=== PATIENT | female | born 1960 | race Caucasian/White ===

== ENCOUNTER 2024-04-07 10:52 | Emergency (ER) | payer MEDICARE, MEDICAID, SELFPAY ==
[2024-04-07 10:59] VITALS: BP 136/67; PULSE 74; RESP 19; TEMP 36.7; O2SAT 97; BMI 30.6
--- NOTE | 2024-04-07 11:18 | PD.EDRME ---
Rapid Medical Screening Exam RME Arrival date/time: 04/07/24 10:52 64-year-old female with past medical history of cholecystectomy appendectomy and daily smoker presents emergency department complaining of right lower quadrant pain that been ongoing since yesterday. Patient reports went to primary care provider and was sent to emergency room for evaluation. Chief Complaint: Abdominal Pain Vital signs: Vital Signs Temperature 98.0 F 04/07/24 10:59 Pulse Rate 74 04/07/24 10:59 Respiratory Rate 19 04/07/24 10:59 Blood Pressure 136/67 H 04/07/24 10:59 Pulse Oximetry (%) 97 04/07/24 10:59 Oxygen Delivery Method Room Air 04/07/24 10:59 Vital signs reviewed by provider: Yes
--- NOTE | 2024-04-07 11:19 | XR_ITS ---
Examination: CT abdomen and pelvis without contrast. Coronal 3-D reconstructions. Sagittal 2-D reconstructions. Date and time of exam:April 07, 2024 1148 hrs. Indications: Onset abdominal pain this week CTDI: vol (mGy): 10.7 DLP: (mGycm): 607 Technique: Axial images of the abdomen have been obtained, 3 mm slice thickness Intravenous contrast material has not been administered. Low dose protocols were performed. One or more of the following dose reduction techniques were used; automated exposure control, adjustment of the mA and/or KV according to patient size, use of iterative reconstruction technique. Findings: Trace pericardial effusion 2 mm pulmonary nodule right lower lobe image 14 No focal liver or splenic lesion Absent gallbladder No pancreatic or adrenal mass No renal or ureteral calculi, no hydronephrosis No bowel obstruction Appendix not visualized, likely absent, no pericecal inflammatory change There are fluid distended small bowel loops in the left anterior abdomen for instance axial image 108 and 128 Colonic diverticulosis, no diverticulitis Atrophic uterus Contracted urinary bladder Pessary Severe osteopenia with advanced disc narrowing L4-L5, L5-S1 Impression: 2 mm pulmonary nodule right lower lobe No renal or ureteral calculi, no hydronephrosis Likely absent appendix Fluid distended small bowel loops in the left anterior abdomen, consider ileus, enteritis such as Crohn's disease No bowel obstruction Colonic diverticulosis, no diverticulitis
[2024-04-07 11:56] LABS: Basophils % (Auto) 0 % (0-2.5); Eosinophils # (Auto) 0.2 Thou/mm3 (0.0-0.5); Eosinophils % (Auto) 2 % (0-10); Hematocrit 42.7 % (36.0-46.0); Hemoglobin 14.3 g/dL (12.0-16.0); Immature Granulocytes % (Auto) 1 % (0-0); Immature Granulocytes Auto 0.05 Thou/mm3 (0.00-0.00); Lymphocytes # (Auto) 3.7 Thou/mm3 (1.0-4.8); Lymphocytes % (Auto) 40 % (10-50); Mean Corpuscular HGB Conc 33.5 g/dl (31.0-37.0); Mean Corpuscular Hemoglobin 31.4 pg (25.0-35.0); Mean Corpuscular Volume 94 fL (80-100); Monocytes # (Auto) 0.4 Thou/mm3 (0.0-0.8); Monocytes % (Auto) 5 % (0-12); Neutrophils # (Auto) 4.8 Thou/mm3 (1.8-7.7); Neutrophils % (Auto) 52 % (37-80); Nucleated Red Blood Cell % 0 /100 WBC (0); Platelet Count 336 Thou/mm3 (140-440); Red Blood Count 4.55 Miln/mm3 (4.00-5.20); White Blood Count 9.2 Thou/mm3 (3.6-11.0)
[2024-04-07 12:19] LABS: Alanine Aminotransferase 17 U/L (10-49); Albumin/Globulin Ratio 1.8 (1.2-2.2); Alkaline Phosphatase 92 U/L (46-116); Anion Gap 3 (7-16); Aspartate Amino Transferase 18 U/L (0-34); BUN/Creatinine Ratio 13 Ratio (12-20); Bilirubin,Total 0.4 mg/dL (0.3-1.2); Blood Urea Nitrogen 10 mg/dL (9-23); Calcium 10.2 mg/dL (8.3-10.6); Calcium (Corrected) 10.2 mg/dL (8.5-10.1); Chloride 106 mMol/L (98-107); Creatinine (Component) 0.8 mg/dL (0.6-1.3); Globulin 2.8 gm/dL (2.3-3.5); Glucose 100 mg/dL (74-106); Lipase 35 U/L (12-53); Osmolality,Calculated 276 (275-295); Potassium 3.7 mMol/L (3.4-5.1); Sodium 139 mMol/L (136-145); Total Protein 7.8 gm/dL (5.7-8.2); eGFR > 60 See Note
[2024-04-07 12:32] LABS: Collection Type, Urine Clean Catch
[2024-04-07 12:42] LABS: Bacteria,Urine 1+; Bilirubin,Urine Negative (Negative); Blood,Urine Negative (Negative); Clarity,Urine Turbid (Clear/Hazy); Color,Urine Yellow (Lt Yel-Yel); Culture Indicated,Urine Contaminated; Glucose, Urine Negative (Negative); Ketones,Urine Negative (Negative); Leukocyte Esterase,Urine Positive (Negative); Nitrite,Urine Negative (Negative); Protein,Urine 1+ (Neg - Trace); RBC,Urine 5 /hpf (0-3); Specific Gravity,Urine 1.021 (1.001-1.035); Squamous Epithelial Cell,Urine 24 /hpf (0-5); Transitional Epi Cells,Urine 1 /hpf (0-5); Urobilinogen,Urine Negative mg/dL (0.0-1.0); WBC,Urine 34 /hpf (0-5)
--- NOTE | 2024-04-07 13:23 | PD.EDABDPN ---
ED Abdominal Pain RME/HPI General Chief Complaint: Abdominal Pain Stated complaint: RIGHT LOWER STOMACH PAIN Time seen by provider: 04/07/24 13:18 Arrival date/time: 04/07/24 10:52 64-year-old female with past medical history of cholecystectomy appendectomy and daily smoker presents emergency department complaining of right lower quadrant pain that been ongoing since yesterday. Patient reports went to primary care provider and was sent to emergency room for evaluation. Source: patient Mode of arrival: ambulatory Limitations: no limitations RME / HPI RME / HPI narrative: 04/07/24 10:52 64-year-old female with past medical history of cholecystectomy appendectomy and daily smoker presents emergency department complaining of right lower quadrant pain that been ongoing since yesterday. Patient reports went to primary care provider and was sent to emergency room for evaluation. Related Data Home Medications ?Medication ?Instructions ?Recorded ?Confirmed levothyroxine 150 mcg tablet 150 mcg PO QDAY #0 tabs 01/23/16 07/26/19 lovastatin 40 mg tablet 80 mg PO HS #0 tabs 01/23/16 07/26/19 bupropion HCl 75 mg tablet 75 mg PO QDAY 03/11/19 07/26/19 Previous Rx's ?Medication ?Instructions ?Recorded albuterol sulfate 90 mcg/actuation 2 puff inhalation Q6H PRN sob #6.7 04/06/19 aerosol inhaler (Ventolin HFA) grams acetaminophen 500 mg capsule 1,000 mg (2 x 500 mg) PO Q6H PRN 01/08/22 pain #14 caps ibuprofen 800 mg tablet 800 mg PO Q6H PRN pain #14 tabs 01/08/22 Allergies Allergy/AdvReac Type Severity Reaction Status Date / Time codeine Allergy Intermediate VOMITING Verified 04/07/24 10:54 Review of Systems Review of Systems Systems Reviewed: All systems reviewed, normal except as documented Constitutional Constitutional: Reports system reviewed and no additional complaints, except as documented, Denies body ache(s), Denies chills and Denies fever(s) Eyes Eyes: Reports system reviewed and no additional complaints, except as documented and Denies change in vision ENT Ears, Nose, Mouth, and Throat: Reports system reviewed and no additional complaints, except as documented, Denies disequilibrium, Denies dizziness, Denies sore throat and Denies vertigo Cardiovascular Cardiovascular: Reports system reviewed and no additional complaints, except as documented, Denies chest pain and Denies dyspnea Respiratory Respiratory: Reports system reviewed and no additional complaints, except as documented, Denies chest congestion, Denies cough and Denies dyspnea Gastrointestinal Gastrointestinal: Reports system reviewed and no additional complaints, except as documented, Reports abdominal pain, Denies nausea and Denies vomiting Musculoskeletal Musculoskeletal: Reports system reviewed and no additional complaints, except as documented, Denies abnormal gait and Denies arthralgias Integumentary/Breasts Skin/Breast: Reports system reviewed and no additional complaints, except as documented, Denies erythema, Denies rash and Denies wounds Neurologic Neurologic: Reports system reviewed and no additional complaints, except as documented, Denies abnormal gait, Denies disequilibrium, Denies dizziness and Denies vertigo Past Medical History Past Medical History CARDIAC: Positive Hypercholesterolemia; Negative Congestive Heart Failure RESPIRATORY: Negative Chronic Obstructive Pulmonary Disease (COPD) GENITOURINARY: Negative Renal Disease MUSCULOSKELETAL: Positive Carpal Tunnel Syndrome (BILAT) ENDOCRINE: Positive Hypothyroidism; Negative Diabetes Mellitus Type 1 or Diabetes Mellitus Type 2 Surgical History SURGICAL: Positive Tubal Ligation and Section (X1) Social History SMOKING STATUS: Current every day smoker SUBSTANCE USE: does not use ED Exam General Limitations: Present no limitations General appearance: Present alert and in no apparent distress Head Head exam: Present atraumatic Eye Eye exam: Present normal appearance, PERRL and EOMI ENT ENT exam: Present normal exam, normal oropharynx and mucous membranes moist Neck Neck exam: Present normal inspection, full ROM and trachea midline Chest Chest inspection: Present normal inspection and symmetric chest wall rise Respiratory Respiratory exam: Present normal lung sounds bilaterally Cardiovascular Cardiovascular exam: Present regular rate, normal rhythm and normal heart sounds Abdominal Exam Abdominal exam: Present soft and normal bowel sounds; Absent tenderness or rebound Extremities Exam Extremities exam: Present normal inspection and full ROM Back Exam Back exam: Present normal inspection and full ROM Neurological Exam Neurological exam: Present alert, oriented X3 and CN II-XII intact Psychiatric Psychiatric exam: Present normal affect and normal mood Skin Skin exam: Present warm, dry, intact and normal color Course Quality Measures none Orders Category Date Time Status CT abdomen pelvis wo con Stat Exams 04/07/24 11:19 Completed CBC Stat Lab 04/07/24 11:37 Completed CMP [Comprehensive Metabolic Panel] Stat Lab 04/07/24 11:37 Completed Lipase Stat Lab 11/09/24 11:37 Completed Urinalysis, C/S if Indicated Stat Lab 04/07/24 12:27 Completed Vital Signs Vital signs: Vital Signs Temperature 98.0 F 04/07/24 10:59 Pulse Rate 74 04/07/24 10:59 Respiratory Rate 19 04/07/24 10:59 Blood Pressure 136/67 H 04/07/24 10:59 Pulse Oximetry (%) 97 04/07/24 10:59 Oxygen Delivery Method Room Air 04/07/24 10:59 97% room air within normal limits Abdominal Pain MDM MDM Narrative MDM Narrative:: 64-year-old female with past medical history of cholecystectomy appendectomy and daily smoker presents emergency department complaining of right lower quadrant pain that been ongoing since yesterday. Patient reports went to primary care provider and was sent to emergency room for evaluation. CBC was unremarkable for any leukocytosis. CMP was unremarkable no elevation of liver enzymes. Urinalysis was contaminated. CT finding: Impression: 2 mm pulmonary nodule right lower lobe No renal or ureteral calculi, no hydronephrosis Likely absent appendix Fluid distended small bowel loops in the left anterior abdomen, consider ileus, enteritis such as Crohn's disease No bowel obstruction Colonic diverticulosis, no diverticulitis Patient's abdomen is soft and nontender. Patient denies any chills, fever, nausea vomiting, diarrhea, or any other associated symptom. Patient appears nontoxic and hemodynamically stable patient instructed to follow-up with primary care provider and have repeat chest x-ray CT scan of 2 mm on a nodule in right lobe. Patient instructed to return to emergency department for any worsening symptoms or as needed. Patient data External records reviewed:: [facility] previous records Clinical information provided by:: patient Social determinants that could affect healthcare access:: none Patient has the following chronic illnesses:: See chart How is presenting disease/condition affected by chronic disease/condition?: uneffected by Evaluation data The following diagnostics were reviewed and interpreted by me:: lab results and radiology exam(s) Lab and/or radiology exams considered but not ordered:: Ordered Interpretation Summary: Interpreted by me Medications / Prescriptions Medications or Prescriptions considered but not ordered:: N/A Medication administrations:: N/A Consultations Consultation(s) initiated? (list below): No Diagnosis Differential diagnosis abdominal pain: abdominal pain and small bowel obstruction Most likely diagnosis given after review of the tests above:: Abdominal pain Admission Indicated Admission indicated?: not indicated Admission Request Was there a request for admission?: No Disposition Plan Disposition Plan: Discharge Discharge Attestation Discharge Attestation: The patient and all family members were given an opportunity to ask questions and understood the discharge instructions. Discharge instructions specifically effects, indications for sooner follow up or return to the emergency department, and the expected course of current diagnosis. Patient condition: Stable Discharge Plan Plan Patient Disposition: HOME (Self Care) Disposition Comment: Stable Prescriptions/Referrals Prescriptions/Med Rec: No Action albuterol sulfate [Ventolin HFA] 90 mcg/actuation HFA aerosol inhaler 2 puff INH Q6H PRN (Reason: sob) Qty: 6.7 0RF lovastatin 40 MG tablet 80 mg PO HS Qty: 0 levothyroxine 150 mcg Tablet 150 mcg PO QDAY Qty: 0 bupropion HCl 75 mg Tablet 75 mg PO QDAY ibuprofen 800 mg tablet 800 mg PO Q6H PRN (Reason: pain) Qty: 14 0RF acetaminophen 500 mg capsule 1,000 mg PO Q6H PRN (Reason: pain) Qty: 14 0RF Referrals: Frida Madrigal, [employer]GER [Primary Care Provider] - In 1 week Problem List Clinical Impression: Abdominal pain Patient/Caregiver Discharge Instructions Discharge Activity: activity as tolerated Education Materials: Abdominal Pain Additional Instructions: Take [id number] Tylenol or ibuprofen as needed for pain. Follow-up with primary care provider for repeat chest x-ray and further workup of pulmonary nodule to right lower lobe. Return to emergency department for any worsening symptoms or as needed. Print Language: Danish Stand Alone Forms: [employer] Award Info., Work/School Release, Patient Portal Info Letter Attestation Attestation The patient was seen by the midlevel practitioner. I, the co-signing physician, was present during the entire ER visit. While I did not physically examine the patient, I was available for consultation as needed.
== END 2024-04-07 14:05 | disposition home or self-care (01) ==
PROVIDERS: Emergency Provider Emergency Medicine; PCP Nurse Practitioner Family
DX: K57.30 Diverticulosis of large intestine without perforation or abscess without bleeding (principal); K63.89 Other specified diseases of intestine; R91.1 Solitary pulmonary nodule
CPT/HCPCS: 36415; 74176; 80053; 81001; 83690; 85025; 99284

== ENCOUNTER → 2024-05-07 | Outpatient (CLI) | payer MEDICARE, MEDICAID, SELFPAY ==
--- NOTE | 2024-05-07 08:45 | XR_ITS ---
Examination: Screening digital mammography, bilateral Computer aided detection 3-D breast Tomosynthesis, bilateral Date and time of exam: May 07, 2024 0836 hours Compared to mammograms dating to March 01, 2005 Indication: Screening Technique: Nonmagnified MLO, CC views of the breasts to been obtained, reconstructed from 3-D Tomosynthesis images. R2 computer aided detection program utilized for evaluation of suspicious masses and/or abnormal calcifications. 3-D Tomosynthesis images obtained. Findings: Scattered areas of fibroglandular density Benign calcifications. No interval suspicious masses Impression: BI-RADS category II: Benign Findings. Recommend 1 year follow-up mammogram.
== END | disposition home or self-care (01) ==
PROVIDERS: PCP Nurse Practitioner Family; Referring Provider Obstetrics & Gynecology; Visit Provider Emergency Medicine
DX: Z12.31 Encounter for screening mammogram for malignant neoplasm of breast (principal); R92.323 Mammographic fibroglandular density, bilateral breasts; R92.1 Mammographic calcification found on diagnostic imaging of breast
CPT/HCPCS: 77063; 77067